=== PATIENT | female | born 1980 | race Caucasian/White ===

== ENCOUNTER 2020-09-20 02:50 | Emergency (ER) | payer OTHER ==
[~2020-09-20] VITALS: Ht 170.2 cm; Wt 97.1 kg
[2020-09-20 03:15] VITALS: BP 129/68
--- NOTE | 2020-09-20 03:15 | NUR ---
SEE COMPLETE ASSESSMENT FOR FURTHER DETAILS.
--- NOTE | 2020-09-20 03:30 | NUR ---
ERMD EVALUATING PATIENT IN TENT.
--- NOTE | 2020-09-20 03:56 | NUR ---
ATTEMPTED TO OBTAIN EKG IN TENT, PT BECAME VERBALLY COMBATIVE AND REFUSED TO TAKE TEST.
[2020-09-20 04:19] VITALS: BP 129/68
--- NOTE | 2020-09-20 04:19 | NUR ---
PATIENT ELOPED FROM FACILITY. DISCHARGE INSTRUCTIONS NOT GIVEN TO PATIENT. NOTIFIED.
== END 2020-09-20 04:19 | disposition left against medical advice (07) ==
LOC: MED 02:50
DX: R06.02 Shortness of breath (principal); M79.10 Myalgia, unspecified site
CPT/HCPCS: 99284